=== PATIENT | female | born 1970 | race Caucasian/White ===

== ENCOUNTER 2024-03-22 08:50 | Outpatient (RCR) | payer BC, SELFPAY | END 2024-03-22 23:59 | disposition home or self-care (01) | LOC: RPT 08:50 | PROVIDERS: ATTENDING PHYSICIAN Obstetrics & Gynecology Gynecology; FAMILY PHYSICIAN Family Medicine | DX: N81.9 Female genital prolapse, unspecified (principal); Z73.6 Limitation of activities due to disability | CPT/HCPCS: 97163; 97530 ==

== ENCOUNTER 2024-05-01 17:55 | Outpatient (RCR) | payer BC, SELFPAY | END 2024-05-01 23:59 | disposition home or self-care (01) | LOC: RPT 17:55 | PROVIDERS: ATTENDING PHYSICIAN Obstetrics & Gynecology Gynecology; FAMILY PHYSICIAN Family Medicine | DX: N81.9 Female genital prolapse, unspecified (principal); Z73.6 Limitation of activities due to disability; R10.2 Pelvic and perineal pain | CPT/HCPCS: 97014; 97110; 97112; 97140; 97530 ==

== ENCOUNTER 2024-05-29 18:58 | Outpatient (RCR) | payer BC, SELFPAY | END 2024-05-29 23:59 | disposition home or self-care (01) | LOC: RPT 18:58 | PROVIDERS: ATTENDING PHYSICIAN Obstetrics & Gynecology Gynecology; FAMILY PHYSICIAN Family Medicine | DX: N81.9 Female genital prolapse, unspecified (principal); Z73.6 Limitation of activities due to disability; R10.2 Pelvic and perineal pain | CPT/HCPCS: 97014; 97110; 97112; 97530 ==

== ENCOUNTER 2024-07-03 17:04 | Outpatient (RCR) | payer BC, SELFPAY | END 2024-07-03 23:59 | disposition home or self-care (01) | LOC: RPT 17:04 | PROVIDERS: ATTENDING PHYSICIAN Obstetrics & Gynecology Gynecology; FAMILY PHYSICIAN Family Medicine | DX: N81.9 Female genital prolapse, unspecified (principal); Z73.6 Limitation of activities due to disability; R10.2 Pelvic and perineal pain | CPT/HCPCS: 97014; 97110; 97112; 97140; 97530 ==

== ENCOUNTER 2024-07-19 19:18 | Day surgery (SDC) | payer BC, SELFPAY ==
[2024-07-19 15:33] VITALS: BP 140/92
--- NOTE | 2024-07-19 16:32 | ED.GENMED ---
History of Present Illness
General
Chief Complaint: Esophageal Problem
Source: patient
Exam Limitations: none
Time Seen by Provider: 07/19/24 16:20
History of Present Illness
History of Present Illness:
Patient ate chicken around 1 PM. Foreign body sensation mid esophagus. Not able to swallow saliva. History of same but has been always able to pass. No chest pain no shortness of breath
Past History
Past History
ED Past Medical History: HTN, Hypercholesterolemia and Hypothyroidism
ED Past Surgical History: Gynecological and Other (nasal surgery)
Social History
Tobacco: Former smoker
Alcohol: Other
Drug: None
Personal:
Living: with family
Employment: Not employed
Family History
Family History: Other
Review of Systems
Review of Systems
All Other Systems: Not applicable
Constitutional: Denies fever
Respiratory: Reports no symptoms
Cardiac: Reports no symptoms
Phy Exam
Physical Exam
Physical Exam:
GENERAL: Alert and oriented in no apparent distress
EYE: Orbits normal.
NECK: Supple, no significant adenopathy.
ENT: No drooling or stridor speech normal
CARDIAC: Regular rate and rhythm without any obvious murmurs.
LUNGS: Clear breath sounds,normal
NEUROLOGICAL: Alert and oriented , grossly non-focal
SKIN: Warm and dry
PSYCH: Normal and appropriate interaction.
Course
Orders/Labs/Results
Orders:
Orders
07/19/24 16:30
IV Insert/Care/Rem.- Treatment PRN
0.9% Sodium Chloride 500 ml [Nss] 500 ml IV BOLUS
Glucagon [GlucaGen] 1 mg IV NOW STA
07/19/24 19:25
Fentanyl Citrate/Pf [Sublimaze] 25 mcg IV PACU-Q5MPRN PRN
Fentanyl Citrate/Pf [Sublimaze] 50 mcg IV PACU-Q5MPRN PRN
Meperidine [Demerol] 12.5 mg IV PACU-Q5MPRN PRN
Ondansetron Injectable [Zofran] 4 mg IV PACU-ONCEPRN PRN
Prochlorperazine [Compazine] 5 mg IV PACU-ONCEPRN PRN
Notify MD As Directed
Notify physician if: for SDS patients with known or suspected sleep obstructive sleep apnea, monitor in the
PACU.
Notify MD for any apneic/desaturation episodes
O2 Therapy [RESP] Urgent
Titrate/Wean O2 to maintain O2 sat greater than (%): 92
Special Instructions: -Provide supplemental oxygen to achieve O2 sat of 92% or greater.
-After 15 min, may wean O2 and discontinue if patient is able to maintain O2 sat of 92%
or greater during recovery period.
If patient is a discharge home, without oxygen therapy, notify anestheiologist if
unable to maintain O2 SAT of 92% or greater on room air for MD clearance.
07/19/24 19:29
Dexamethasone Sod Phosphate [Decadron] 20 mg .ROUTE .STK-MED ONE
Lidocaine HCl/Pf [Xylocaine-Mpf 1% Vial] 50 mg .ROUTE .STK-MED ONE
Ondansetron Injectable [Zofran] 4 mg .ROUTE .STK-MED ONE
Phenylephrine HCl/0.9% NaCl [Reinaldo-Synephrine] 1,000 mcg .ROUTE .STK-MED ONE
Propofol [Diprivan] 20 ml .ROUTE .STK-MED
Rocuronium [place] [Rocuronium] 50 mg .ROUTE .STK-MED ONE
Succinylcholine Chloride [Succinylcholine] 200 mg .ROUTE .STK-MED ONE
Sugammadex Sodium [Bridion] 200 mg .ROUTE .STK-MED ONE
07/19/24 19:30
Normosol (Mult Electrolytes) [Normosol-R/Plasmalyte-A] 1,000 ml IV PER PROTOCOL
Vital Signs
Initial and Last Documented VS:
Initial Vital Signs
Temp Pulse Resp BP Pulse Ox
98.7 F 93 18 140/92 98
07/19/24 15:33 07/19/24 15:33 07/19/24 15:33 07/19/24 15:33 07/19/24 15:33
Last Documented Vital Signs
Temp Pulse Resp BP Pulse Ox
98.3 F 79 18 103/67 93
07/19/24 19:17 07/19/24 19:45 07/19/24 19:45 07/19/24 19:31 07/19/24 19:45
MDM/Problems Addressed
Differential Diagnosis Includes:
All consistent with esophageal food impaction. Patient has had similar symptoms in the past but has been able to self resolve in the past. Will try glucagon. Endoscopy if not successful. GI contacted.
*Critical Care Note
Total Time (30-74mins, 75-104mins- exclusive of procedures): Not Applicable
Update Note
Update Note:
1725... If no resolution with glucagon. Referred to GI.
ED Attending Note
-
Portions of this chart may have been created with voice recognition software.� Occasional wrong word or��sound alike� substitutions may have occurred due to the inherent limitations of voice recognition software.
Discharge Plan
Departure
Patient Disposition: Admit
Date of Disposition: 07/19/24
Time of Disposition: 17:30
Presentation/result/management discussed w/ accepting MD/DO: Gastroenterology
Discharge Problem:
Esophageal food impaction
Interventions
Interventions:
*Risk Screen - Suicide Last Done: 07/19/24 15:33
*General Assessment Last Done: 07/19/24 16:45
*Neglect/Abuse Screening Last Done: 07/19/24 15:33
*ED- Fall Risk Assessment Last Done: 07/19/24 16:45
*ED COVID-19 Vaccine History Last Done: 07/19/24 16:45
*Nursing Disposition Last Done: 07/19/24 18:35
RX-Rnwzas-Mbjtgmlzzn Assessment Last Done: 07/19/24 16:45
ED-EENT Assessment Last Done: 07/19/24 16:45
Discharge Date and Time
Discharge Date/Time: 07/19/24 18:35
[2024-07-19] MEDS: GlucaGen 1 MG IV (16:43)
[2024-07-19] MEDS: NSS 500 IV (16:44)
[2024-07-19 16:49] VITALS: BMI 33.0
[2024-07-19 17:30] VITALS: BP 131/83
--- NOTE | 2024-07-19 17:40 | EDRN ---
Dr. Luna informed of pt unable to swallow water though he said he already knew this and had called in GI.
--- NOTE | 2024-07-19 18:22 | EDRN ---
Report given to Layla in GI lab and pt to go to GI suite when ED PCT Javan returns to ED.
--- NOTE | 2024-07-19 18:48 | CON.GI ---
Consultation
-
Date/Time Consultation Requested: 07/19/2024
Date/Time Consultation Performed: 07/19/2024
Requesting Provider: ED
Performing Provider: Audrey PERDOMO
Reason for Consultation: food impaction
Medical History
Chief Complaint / HPI
Chief Complaint: food impaction
History of Present Illness:
54 y/o female with intermittent dysphagia for 2 years admitted with food impaction. Happened when she was eating chicken/ carrots around 11 am today. She vomited some food particles but continues to have difficulty swallowing saliva and tolerating
liquids . No prior EGD. denies any reflux or heartburn symptoms . Denies any chest pain/ SOB/ abdominal pain . Currently on zepbound for weight loss
Past Medical History
Past Medical History: Other (HTN, Hypercholesterolemia and Hypothyroidism)
Allergies / Home Medications
Allergy/AdvReac Type Severity Reaction Status Date / Time
No Known Allergies Allergy Verified 07/19/24 15:33
�Medication �Instructions �Recorded
cyclosporine 0.1 % eye drops in a 1 drp BOTH EYES BID 07/19/24
dropperette
fluticasone propionate 50 1 spray intranasal DAILYPRN PRN 07/19/24
mcg/actuation nasal seasonal allergies
spray,suspension
levothyroxine 175 mcg tablet 175 mcg PO DAILY 07/19/24
lifitegrast 5 % eye drops in a 1 drp BOTH EYES BID 07/19/24
dropperette (Xiidra)
perfluorohexyloctane (PF) 100 % 1 drp BOTH EYES QIDPRN PRN dry eyes 07/19/24
eye drops (Miebo (PF))
rosuvastatin 20 mg tablet 20 mg PO DAILY 07/19/24
tirzepatide (weight loss) 5 mg/0.5 5 mg SC FR 07/19/24
mL subcutaneous solution (Zepbound)
valsartan 80 mg tablet 80 mg PO DAILY 07/19/24
Review of Systems
Vital Signs
Temp Pulse Resp BP Pulse Ox
98.7 F 78 16 131/83 95
07/19/24 15:33 07/19/24 17:30 07/19/24 17:30 07/19/24 17:30 07/19/24 17:30
Physical Exam
Exam
General: No Apparent Distress
Respiratory: Clear
Cardiac: S1/S2
GI: Soft, Non Tender, Non Distended and Normal Bowel Sounds
Results
Diagnostic Image Results:
Prior GI Procedures:
EGD: none
Colonoscopy: few years back at outside facility
Assessment / Plan
-
54 y/o female with food impaction after eating chicken for lunch around 11 am . intermittent dysphagia for 2 years. No prior EGD
-- FOOD IMPACTION
plan
NPO
will schedule for EGD
Total Time Spent with Patient (in minutes): 55
-
-
Thank you for consultation and allowing me to participate in the patient's care. Please call the worker's compensation claims examiner GI physician during the after hours with any questions or concerns.
--- NOTE | 2024-07-19 19:11 | EDRN ---
Layla RN during report (GI LAB) requested name and cell # of spouse which was given to her by me via patient. Patient stated spouse enroute. Triage notified where pt is and ext # to GI Lab [phone].
[2024-07-19 19:31] VITALS: BP 103/67
== END 2024-07-19 20:10 | disposition home or self-care (01) ==
LOC: GI 19:18
PROVIDERS: ATTENDING PHYSICIAN Internal Medicine Gastroenterology; EMERGENCY PHYSICIAN Emergency Medicine; FAMILY PHYSICIAN Family Medicine
DX: T18.108A Unspecified foreign body in esophagus causing other injury, initial encounter (principal); T18.128A Food in esophagus causing other injury, initial encounter; W44.F3XA Food entering into or through a natural orifice, initial encounter; K31.7 Polyp of stomach and duodenum; K20.90 Esophagitis, unspecified without bleeding; K29.70 Gastritis, unspecified, without bleeding; K31.89 Other diseases of stomach and duodenum; K29.80 Duodenitis without bleeding
CPT/HCPCS: 43239; 88305; 88342; 96361; 96374; 99284; J1610

== ENCOUNTER 2024-07-20 06:04 | Emergency (ER) | payer BC, SELFPAY ==
[2024-07-20] VITALS (8 sets, daily range): BP systolic 89–133; BP diastolic 69–83; BMI 29.0
[2024-07-20 07:03] LABS: % Basophils 0.3 % (0-2); % Immature Granulocytes 0.6 % (0-0.5); % Lymphocytes 13.5 % (20.5-51.1); % Monocytes 1.1 % (1.7-9.3); % Neutrophils 84.5 % (42.2-75.2); Absolute Immature Granulocytes 0.1 10^3/uL (0-0.05); Absolute Lymphocytes 1.1 10^3/uL (1.2-3.4); Absolute Monocytes 0.1 10^3/uL (0.1-0.6); Absolute Neutrophils 6.7 10^3/uL (1.4-6.5); Hemoglobin 14.1 g/dL (12.0-16.0); Mean Corp Hgb Conc. 33.6 g/dL (33.0-37.0); Mean Corpuscular Hgb 28.7 pg (27.0-31.0); Mean Corpuscular Volume 85.5 fL (81.0-99.0); Mean Platelet Volume 9.3 fL (7.4-10.4); Nucleated Red Blood Cells % 0 %; Platelet Count 230 10^3/uL (130-400); Red Blood Cell Count 4.91 10^6/uL (4.20-5.40); Red Cell Dist. Width 13.8 % (11.5-14.5); White Blood Cell Count 7.9 10^3/uL (4.8-10.8)
--- NOTE | 2024-07-20 07:07 | ED.GENMED ---
History of Present Illness
General
Chief Complaint: Musculo-Skeletal Complaint
Source: patient and family (Spouse states that she got home late last night but did complain of the pain since surgery)
Exam Limitations: none
Time Seen by Provider: 07/20/24 06:33
History of Present Illness
History of Present Illness:
54-year-old female who presents with bilateral calf pain. The patient notes that she had an endoscopy performed last night. Surgical records were reviewed and it appears patient had general esthesia. Patient states she did mention to the nurse
last night who thought maybe it was just related to the position she was in. The patient does admit that when she had bilateral mastectomy she did have a fever postoperatively that was worked up and negative. Patient states that her calf pain has
sort of persisted so she looked it up on the computer and was worried so came to the hospital. No swelling. No shortness of breath. Only pain in the calves bilaterally. No redness. No fever. No shortness of breath. No palpitations
Past History
Past History
ED Past Medical History: HTN, Hypercholesterolemia and Hypothyroidism
ED Past Surgical History: Gynecological and Other (nasal surgery)
Social History
Tobacco: Former smoker
Alcohol: Other
Drug: None
Personal:
Living: with family
Employment: Not employed
Family History
Family History: Other
Phy Exam
Physical Exam
Physical Exam:
CONSTITUTIONAL Patient alert and oriented to person, place and time. Well-appearing. Vital signs reviewed.
HEAD atraumatic, normocephalic.
EYES eyelids normal to inspection, Extraocular muscles intact, Conjunctiva normal, Sclera normal.
NECK normal range of motion, Trachea midline, no jugular venous distention.
RESPIRATORY CHEST No respiratory distress noted, Chest expansion equal, Bilateral breath sounds clear.
CARDIOVASCULAR regular rate and rhythm, Heart sounds normal.
ABDOMEN abdomen nontender, Bowel sounds normal. No distention.
BACK normal inspection, no obvious deformities
UPPER EXTREMITY range of motion normal, Motor strength normal, no cyanosis, no edema.
LOWER EXTREMITY range of motion normal, Motor strength normal, no cyanosis, no edema. Mild tenderness to the calves bilaterally. Normal distal pulses bilaterally. Feet and legs are warm and well-perfused. Thighs are nontender. Anterior lower
legs are nontender. There is no palpable cords.
NEURO Speech normal, No focal motor deficits, Superior coma scale 15, Memory normal, Cranial Nerves intact to screening exam.
SKIN skin warm, dry, and normal in color.
Course
Orders/Labs/Results
Orders:
Orders
07/20/24 06:55
CPK [Creatine Phosphokinase] Urgent
Complete Blood Count/With Diff Urgent
Comprehensive Metabolic Panel Urgent
07/20/24 07:48
0.9% Sodium Chloride 1000 ml [Nss] 1,000 ml IV BOLUS
07/20/24 08:42
Urinalysis Reflex To Culture Urgent
Date Specimen was Collected: 07/20/24
Time Specimen was Collected: 08:30
Urine Microscopic Reflex Cult Urgent
Urine Culture Urgent
LISA Source: U
Specimen Description:
Date Specimen was Collected: 07/20/24
Time Specimen was Collected: 08:30
Abnormal Lab Results
07/20/24 07/20/24
06:55 08:42
Abs Immat Gran (auto) 0.1 H 10^3/uL
(0-0.05)
Absolute Neuts (auto) 6.7 H 10^3/uL
(1.4-6.5)
Absolute Lymphs (auto) 1.1 L 10^3/uL
(1.2-3.4)
Immature Gran % 0.6 H %
(0-0.5)
Neutrophils % 84.5 H %
(42.2-75.2)
Lymphocytes % 13.5 L %
(20.5-51.1)
Monocytes % 1.1 L %
(1.7-9.3)
Chloride 108 H mmol/L
(98-107)
BUN 23 H mg/dl
(7-17)
Glucose 182 H mg/dl
(70-99)
Creatine Kinase 414 H U/L
(30-135)
Leukocyte Esterase Rfl 1+ A
(Negative)
Urine Bacteria (Reflex) Few A
(Negative)
07/20/24 06:55
07/20/24 06:55
Vital Signs
Initial and Last Documented VS:
Initial Vital Signs
Temp Pulse Resp BP Pulse Ox
98.8 F 78 20 123/83 96
07/20/24 06:12 07/20/24 06:12 07/20/24 06:12 07/20/24 06:12 07/20/24 06:12
Last Documented Vital Signs
Temp Pulse Resp BP Pulse Ox
98.8 F 67 20 99/76 96
07/20/24 06:12 07/20/24 08:30 07/20/24 08:30 07/20/24 08:30 07/20/24 08:30
MDM/Problems Addressed
Differential Diagnosis Includes:
DVT, arterial occlusion, myositis, rhabdomyolysis, malignant hyperthermia
MDM/Problems Addressed:
Myositis related to succinylcholine
*Pulse Oximetry
Patient hypoxic: no
*Critical Care Note
Total Time (30-74mins, 75-104mins- exclusive of procedures): Not Applicable
Data Reviewed
Source: patient and spouse
Further Testing Considered But Not Given:
Considered ultrasound with symptoms of bilateral
Patient Management
Discussion with other providers: Site Manager (Anesthesia)
Escalation/DeEscalation of care consider admission/obs:
No sign of malignant hyperthermia. Suspect myositis related to succinylcholine. Case discussed with anesthesia. She appears very well. Given IV fluids. On reassessment she is eating and looking well. Okay for discharge. Patient counseled on
reasons for return
ED Attending Note
-
Portions of this chart may have been created with voice recognition software.� Occasional wrong word or��sound alike� substitutions may have occurred due to the inherent limitations of voice recognition software.
Discharge Plan
Departure
Patient Disposition: Home (Routine Discharge)
Date of Disposition: 07/20/24
Time of Disposition: 09:33
Patient with high blood pressure during this ER visit?: No
Discharge Problem:
Myositis
Prescriptions:
No Action
levothyroxine 175 mcg Tablet
175 mcg PO DAILY
valsartan 80 mg Tablet
80 mg PO DAILY
fluticasone propionate [Flonase] 50 mcg/actuation [place],Suspension
1 spray INTRANASAL DAILYPRN PRN (Reason: seasonal allergies)
rosuvastatin 20 mg Tablet
20 mg PO DAILY
Xiidra 5 % Dropperette
1 drp BOTH EYES BID
cyclosporine 0.1 % Dropperette
1 drp BOTH EYES BID
Miebo (PF) 100 % Drops
1 drp BOTH EYES QIDPRN PRN (Reason: dry eyes)
Zepbound 5 mg/0.5 mL Solution
5 mg SC FR
Referrals:
UNKNOWN - PT DOES,NOT KNOW [Family Provider] -
Activity Restrictions/Additional Instructions:
Myositis
Please be sure to mention this reaction to anesthesia anytime you need to have anesthesia. Return immediately for fevers, worsening pain, spread of the pain, dark urine, or any other concerns. Please drink plenty fluids and see your doctor in
follow-up in the next 3 to 5 days.
Interventions
Interventions:
*Risk Screen - Suicide Last Done: 07/20/24 06:12
*General Assessment Last Done: 07/20/24 07:00
*Neglect/Abuse Screening Last Done: 07/20/24 07:00
*ED- Fall Risk Assessment Last Done: 07/20/24 07:00
*ED COVID-19 Vaccine History Last Done: 07/20/24 07:00
ED-Musculoskeletal Assessment Last Done: 07/20/24 07:00
Discharge Date and Time
Print Language: [place]
[2024-07-20 07:22] LABS: ALT (SGPT) 25 U/L (0-35); AST (SGOT) 25 U/L (14-36); Albumin 4.3 g/dl (3.5-5.0); Alkaline Phosphatase 82 U/L (38-126); Blood Urea Nitrogen 23 mg/dl (7-17); Calcium 9.9 mg/dl (8.4-10.2); Carbon Dioxide 22 mmol/L (22-30); Chloride 108 mmol/L (98-107); Creatine Phosphokinase 414 U/L (30-135); Estimated Creatinine Clearance 88 ml/min; Glucose 182 mg/dl (70-99); Potassium 4.4 mmol/L (3.5-5.1); Sodium 141 mmol/L (135-145); Total Bilirubin 0.7 mg/dl (0.2-1.3); Total Protein 7.9 g/dl (6.3-8.2); eGFR > 60.00
[2024-07-20] MEDS: NSS 1000 IV (08:31)
[2024-07-20 08:56] LABS: Urine Albumin Negative (Neg - Trace); Urine Bilirubin Negative (Negative); Urine Character Clear (Clear); Urine Color Yellow; Urine Glucose Negative (Negative); Urine Ketone Negative (Negative); Urine Leukocyte 1+ (Negative); Urine Nitrite Negative (Negative); Urine Occult Blood Negative (Negative); Urine Specific Gravity 1.015 (<1.030); Urine Urobilinogen Negative (Neg - 1+)
[2024-07-20 09:06] LABS: Urine Bacteria Few (Negative); Urine Red Blood Cell 0-2 /HPF (0-2); Urine Squamous Cell 16-20 /LPF (Few)
== END 2024-07-20 10:26 | disposition home or self-care (01) ==
LOC: EMR 06:04
PROVIDERS: EMERGENCY PHYSICIAN Emergency Medicine
DX: M60.9 Myositis, unspecified (principal); M79.662 Pain in left lower leg; M79.661 Pain in right lower leg; I10 Essential (primary) hypertension; E78.00 Pure hypercholesterolemia, unspecified; E03.9 Hypothyroidism, unspecified; Z87.891 Personal history of nicotine dependence
CPT/HCPCS: 96360; 99284; 80053; 81003; 81015; 82550; 85025; 87086

== ENCOUNTER 2024-07-31 17:06 | Outpatient (RCR) | payer BC, SELFPAY | END 2024-07-31 23:59 | disposition home or self-care (01) | LOC: RPT 17:06 | PROVIDERS: ATTENDING PHYSICIAN Obstetrics & Gynecology Gynecology; FAMILY PHYSICIAN Family Medicine | DX: N81.9 Female genital prolapse, unspecified (principal); R10.2 Pelvic and perineal pain; Z73.6 Limitation of activities due to disability | CPT/HCPCS: 97014; 97112; 97140; 97530 ==

== ENCOUNTER 2024-08-18 14:05 | Outpatient (RCR) | payer BC, SELFPAY | END 2024-08-18 23:59 | disposition home or self-care (01) | LOC: RPT 14:05 | PROVIDERS: ATTENDING PHYSICIAN Obstetrics & Gynecology Gynecology; FAMILY PHYSICIAN Family Medicine | DX: N81.9 Female genital prolapse, unspecified (principal); R10.2 Pelvic and perineal pain; Z73.6 Limitation of activities due to disability | CPT/HCPCS: 97110; 97112; 97530 ==